=== PATIENT | male | born 1985 | race African-American/Black ===

== ENCOUNTER 2017-07-10 10:27 | Emergency (ER) | payer SELFPAY ==
[2017-07-10] MEDS ORDERED: Acetaminophen 500 MG TAB ONE (11:49)
== END 2017-07-10 12:29 | disposition home or self-care (01) ==
LOC: ERS 10:27
DX: J30.9 Allergic rhinitis, unspecified (principal); F17.210 Nicotine dependence, cigarettes, uncomplicated
CPT/HCPCS: 99406

== ENCOUNTER 2018-02-27 15:22 | Emergency (ER) | payer SELFPAY ==
[2018-02-27] MEDS ORDERED: diphenhydrAMINE 50 MG/ML VIAL ONE (17:50)
[2018-02-27] MEDS ORDERED: Metoclopramide HCl 10 MG/2 ML VIAL ONE (17:50)
[2018-02-27 18:24] LABS: #Basophils 0.1 thou/uL (0.0-0.2); #Eosinphils 0.2 thou/uL (0.0-0.7); #Lymphocytes 2.2 thou/uL (1.20-3.40); #Monocytes 0.5 thou/uL (0.11-0.59); #Neutrophils 3.2 thou/uL (1.40-6.50); %Basophils 1.6 % (0.0-1.0); %Eosinophils 2.5 % (0.0-10.0); %Lymphocytes 35.2 % (21.0-51.0); %Neutrophils 52.7 % (42.0-75.0); Hemoglobin 14.5 g/dL (14.0-18.0); Mean Corpuscular HGB CONC 33.3 g/dL (32.0-36.0); Mean Corpuscular Hemoglobin 29.9 pg (27.0-31.0); Mean Corpuscular Volume 89.9 fL (78.0-98.0); Mean Platelet Volume 8.8 fL (7.4-10.4); Platelet Count 166 thou/uL (130-400); RBC Distribution Width 11.3 % (11.5-14.5); Red Blood Cell (RBC) Count 4.83 mill/uL (4.70-6.10); White Blood Cell (WBC) Count 6.1 thou/uL (4.8-10.8)
[2018-02-27 18:56] LABS: ALT (SGPT) 35 U/L (8-55); AST (SGOT) 26 U/L (5-34); Albumin 4.2 g/dL (3.5-5.0); Alkaline Phosphatase 63 U/L (40-150); Anion Gap 12 mmol/L (10-20); BUN (Urea Nitrogen) 12 mg/dL (8.9-20.6); Bilirubin, Total 0.5 mg/dL (0.2-1.2); CK (CPK) 416 U/L (30-200); Calc. Creatinine Clearance 0 mL/min (70-130); Calcium 9.4 mg/dL (7.8-10.44); Carbon Dioxide 22 mmol/L (22-29); Chloride 108 mmol/L (98-107); Estimated GFR-MDRD 72; Globulin 2.9 g/dL (2.4-3.5); Glucose 80 mg/dL (70-105); Magnesium 2.1 mg/dL (1.6-2.6); Protein, Total 7.1 g/dL (6.0-8.3); Sodium 138 mmol/L (136-145)
[2018-02-27 20:05] LABS: Bilirubin Negative (Negative); Blood, Urine Negative (Negative); Clarity CLEAR (Clear); Glucose, Urine (Dipstick) Negative (Negative); Leukocyte Negative (Negative); Nitrite Negative (Negative); Protein, Urine (Dipstick) Negative (Neg-Trace); Specific Gravity, Urine 1.024 (1.002-1.036); Urobilinogen 0.2 mg/dL (0.2-1.0); pH, Urine 5.5 (5.0-9.0)
[2018-02-27 20:17] LABS: Amphetamine Not Detected (NotDetected); Barbiturates Screen Not Detected (NotDetected); Benzodiazepine Screen Not Detected (NotDetected); Cocaine Metabolite Screen Detected (NotDetected); Medtox Control Line Valid? VALID (VALID); Medtox Reader # READER 4; Methadone Not Detected (NotDetected); Methamphetamine Not Detected (NotDetected); Opiate Screen Not Detected (NotDetected); Oxycodone Screen Not Detected (NotDetected); Phencyclidine (PCP) Not Detected (NotDetected); THC/Cannabinoid Screen Not Detected (NotDetected); Tricyclic Screen Not Detected (NotDetected)
== END 2018-02-27 20:20 | disposition home or self-care (01) ==
LOC: ERS 15:22
DX: T67.5XXA Heat exhaustion, unspecified, initial encounter (principal); E86.0 Dehydration; F17.210 Nicotine dependence, cigarettes, uncomplicated
CPT/HCPCS: 36415; 80053; 80306; 81003; 82550; 83735; 85025; 96365; 96366; 96375; J1200; J2765

== ENCOUNTER 2018-04-24 10:23 | Emergency (ER) | payer OTHER, SELFPAY ==
--- NOTE | 2018-04-24 11:43 | CT ---
CT BRAIN WITHOUT CONTRAST: Date: 04/24/18 HISTORY: Trauma. Headache. FINDINGS: No evidence of acute infarct, hemorrhage, midline shift, or abnormal extra-axial fluid collections ar e seen. The ventricular size is normal and the basilar cisterns are patent. The bony calvarium is int act. The visualized paranasal sinuses are well aerated. IMPRESSION: No CT evidence of acute intracranial process. POS: [facility]
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
== END 2018-04-24 12:16 | disposition home or self-care (01) ==
LOC: ERS 10:23
DX: S16.1XXA Strain of muscle, fascia and tendon at neck level, initial encounter (principal); S00.83XA Contusion of other part of head, initial encounter; F17.210 Nicotine dependence, cigarettes, uncomplicated; Z79.899 Other long term (current) drug therapy; Z79.891 Long term (current) use of opiate analgesic; V43.52XA Car driver injured in collision with other type car in traffic accident, initial encounter
CPT/HCPCS: 70450; 72125

== ENCOUNTER 2018-05-23 06:01 | Emergency (ER) | payer SELFPAY ==
[2018-05-23] MEDS ORDERED: Lidocaine 1% PF 5 ML VIAL ONE (07:29)
[2018-05-23] MEDS ORDERED: cefTRIAXone\\ROCEPHIN 250 MG VIAL ONE (07:29)
[2018-05-23] MEDS ORDERED: Azithromycin 250 MG TAB ONE (07:29)
[2018-05-23 08:20] LABS: Bilirubin Small (Negative); Blood, Urine Negative (Negative); Clarity CLEAR (Clear); Glucose, Urine (Dipstick) Negative (Negative); Leukocyte Negative (Negative); Nitrite Negative (Negative); Protein, Urine (Dipstick) 30 mg/dL (Neg-Trace); Specific Gravity, Urine 1.039 (1.002-1.036); Urobilinogen 0.2 mg/dL (0.2-1.0); pH, Urine 5.5 (5.0-9.0)
[2018-05-23 08:25] LABS: Bacteria/HPF None Seen HPF (None Seen); Hyaline Casts/LPF 0-3 HYALINE CAST LPF (0-3 Hyaline); Pathc Cast-AUWi Flag 0.29 (0-2.49); RBC/HPF 0-3 HPF (0-3); Squamous Epithelial 0-3 HPF (0-3); WBC/HPF 0-3 HPF (0-3)
--- NOTE | 2018-05-23 11:13 | RAD ---
PA AND LATERAL CHEST: HISTORY: Cough. FINDINGS: Heart size is within normal limits. Mediastinal structures are unremarkable. The lungs are clear of infiltrates. No significant bony findings. IMPRESSION: No active intrathoracic disease. POS: [facility]
[2018-05-24 19:43] LABS: Chlamydia by PCR Not Detected (NotDetected); GC by PCR Not Detected (NotDetected)
== END 2018-05-23 09:16 | disposition home or self-care (01) ==
LOC: ERS 06:01
DX: J06.9 Acute upper respiratory infection, unspecified (principal); Z20.2 Contact with and (suspected) exposure to infections with a predominantly sexual mode of transmission; F17.210 Nicotine dependence, cigarettes, uncomplicated
CPT/HCPCS: 71046; 81003; 81015; 87081; 87430; 87491; 87591; 93005; 96372; J0696; J2001

== ENCOUNTER 2018-09-23 19:04 | Emergency (ER) | payer SELFPAY ==
[2018-09-23 19:39] LABS: #Eosinphils 0.1 thou/uL (0.0-0.7); #Lymphocytes 1.5 thou/uL (1.20-3.40); #Monocytes 0.5 thou/uL (0.11-0.59); #Neutrophils 1.8 thou/uL (1.40-6.50); %Eosinophils 1.5 % (0.0-10.0); %Lymphocytes 38.3 % (21.0-51.0); %Neutrophils 47.2 % (42.0-75.0); Hemoglobin 15.1 g/dL (14.0-18.0); Mean Corpuscular HGB CONC 31.9 g/dL (32.0-36.0); Mean Corpuscular Hemoglobin 28.8 pg (27.0-31.0); Mean Corpuscular Volume 90.1 fL (78.0-98.0); Platelet Count 250 thou/uL (130-400); RBC Distribution Width 11.5 % (11.5-14.5); Red Blood Cell (RBC) Count 5.23 mill/uL (4.70-6.10); White Blood Cell (WBC) Count 3.9 thou/uL (4.8-10.8)
[2018-09-23 19:48] LABS: Bilirubin Small (Negative); Blood, Urine Negative (Negative); Clarity CLEAR (Clear); Glucose, Urine (Dipstick) Negative (Negative); Leukocyte Trace (Negative); Nitrite Negative (Negative); Protein, Urine (Dipstick) Trace mg/dL (Neg-Trace); Specific Gravity, Urine 1.029 (1.002-1.036)
[2018-09-23 19:50] LABS: Bacteria/HPF None Seen HPF (None Seen); Hyaline Casts/LPF 0-3 HYALINE CAST LPF (0-3 Hyaline); Pathc Cast-AUWi Flag 0.29 (0-2.49); RBC/HPF 0-3 HPF (0-3); Squamous Epithelial None Seen HPF (0-3); WBC/HPF 0-3 HPF (0-3)
[2018-09-23 20:00] LABS: ALT (SGPT) 26 U/L (8-55); AST (SGOT) 22 U/L (5-34); Acetaminophen Less than 6.0 mcg/mL (10.0-30.0); Albumin 3.7 g/dL (3.5-5.0); Alcohol Less than 10 mg/dL (Less than 10); Alkaline Phosphatase 53 U/L (40-150); Anion Gap 16 mmol/L (10-20); BUN (Urea Nitrogen) 10 mg/dL (8.9-20.6); Bilirubin, Total 0.6 mg/dL (0.2-1.2); Calc. Creatinine Clearance 0 mL/min (70-130); Carbon Dioxide 19 mmol/L (22-29); Chloride 108 mmol/L (98-107); Estimated GFR-MDRD 49; Globulin 2.3 g/dL (2.4-3.5); Glucose 176 mg/dL (70-105); Salicylate Less than 8.0 mg/dL (15.0-30.0); Sodium 139 mmol/L (136-145)
--- NOTE | 2018-09-23 20:07 | RAD ---
LEFT HAND THREE VIEWS: 09/23/18 HISTORY: Pain. COMPARISON: None. FINDINGS: There is no fracture. No cortical irregularity or periosteal reaction. There is mild degenerative meg nges in the fifth proximal interphalangeal joint space. Remaining joint spaces are preserved. IMPRESSION: Unremarkable left hand three views. POS: [facility]
[2018-09-23 20:12] LABS: Amphetamine Not Detected (NotDetected); Barbiturates Screen Not Detected (NotDetected); Benzodiazepine Screen Not Detected (NotDetected); Cocaine Metabolite Screen Detected (NotDetected); Medtox Control Line Valid? VALID (VALID); Medtox Reader # READER 1; Methadone Not Detected (NotDetected); Methamphetamine Not Detected (NotDetected); Opiate Screen Not Detected (NotDetected); Oxycodone Screen Not Detected (NotDetected); Phencyclidine (PCP) Not Detected (NotDetected); THC/Cannabinoid Screen Detected (NotDetected); Tricyclic Screen Not Detected (NotDetected)
--- NOTE | 2018-09-26 23:35 | EKG ---
Test Reason : Blood Pressure : / mmHG Vent. Rate : 129 BPM Atrial Rate : 129 BPM P-R Int : 124 ms QRS Dur : 074 ms QT Int : 304 ms P-R-T Axes : 000 099 -22 degrees QTc Int : 445 ms Sinus tachycardia Rightward axis Abnormal QRS-T angle, consider primary T wave abnormality Abnormal ECG Confirmed by ARIE WALKER, TERRI ([id number]), videotape editor RODRIGUEZ MCDANIEL ([id number]) on 09/26/2018 11:35:17 PM Referred By: Confirmed By:TERRI SARGENT MD
== END 2018-09-23 21:42 | disposition home or self-care (01) ==
LOC: ERS 19:04
DX: F14.129 Cocaine abuse with intoxication, unspecified (principal); F12.10 Cannabis abuse, uncomplicated; F17.210 Nicotine dependence, cigarettes, uncomplicated
CPT/HCPCS: 36415; 80053; 80306; 80307; 81003; 81015; 84443; 85025; 93005; 96360; 96361

== ENCOUNTER 2018-11-21 01:08 | Emergency (ER) | payer SELFPAY | END 2018-11-21 01:32 | LOC: ERS 01:08 | DX: F16.10 Hallucinogen abuse, uncomplicated (principal); R45.1 Restlessness and agitation; F17.210 Nicotine dependence, cigarettes, uncomplicated | CPT/HCPCS: 99283 ==

== ENCOUNTER 2019-02-08 11:53 | Emergency (ER) | payer SELFPAY | END 2019-02-08 13:30 | disposition home or self-care (01) | LOC: ERS 11:53 | DX: H11.31 Conjunctival hemorrhage, right eye (principal); J06.9 Acute upper respiratory infection, unspecified; F17.210 Nicotine dependence, cigarettes, uncomplicated | CPT/HCPCS: 99283 ==

== ENCOUNTER 2019-02-22 17:41 | Emergency (ER) | payer SELFPAY ==
[2019-02-22 19:41] LABS: Bilirubin Negative (Negative); Blood, Urine Negative (Negative); Clarity Clear (Clear); Glucose, Urine (Dipstick) Normal (Negative); Leukocyte Negative Leu/uL (Negative); Nitrite Negative (Negative); Protein, Urine (Dipstick) 10 mg/dL (Neg-Trace); Urobilinogen 3 mg/dL (Less than 2)
[2019-02-24 23:02] LABS: Chlam.trachomatis by PCR,Urine Not Detected (NotDetected)
== END 2019-02-22 20:12 | disposition home or self-care (01) ==
LOC: ERS 17:41
DX: R30.0 Dysuria (principal); F17.210 Nicotine dependence, cigarettes, uncomplicated
CPT/HCPCS: 81003; 87491; 87591; 99281

== ENCOUNTER 2019-02-28 20:28 | Observation (INO) | payer SELFPAY ==
[2019-02-28 20:54] LABS: #Basophils 0.1 thou/uL (0.0-0.2); #Eosinphils 0.3 thou/uL (0.0-0.7); #Lymphocytes 2.5 thou/uL (1.20-3.40); #Monocytes 0.8 thou/uL (0.11-0.59); %Basophils 0.9 % (0.0-1.0); %Eosinophils 3.4 % (0.0-10.0); %Lymphocytes 25.4 % (21.0-51.0); %Monocytes 8.1 % (0.0-10.0); %Neutrophils 62.2 % (42.0-75.0); Hemoglobin 15.7 g/dL (14.0-18.0); Mean Corpuscular HGB CONC 33.5 g/dL (32.0-36.0); Mean Corpuscular Hemoglobin 29.7 pg (27.0-31.0); Mean Corpuscular Volume 88.9 fL (78.0-98.0); Mean Platelet Volume 9.5 fL (7.4-10.4); Platelet Count 293 thou/uL (130-400); RBC Distribution Width 11.4 % (11.5-14.5); Red Blood Cell (RBC) Count 5.28 mill/uL (4.70-6.10); White Blood Cell (WBC) Count 9.7 thou/uL (4.8-10.8)
[2019-02-28 21:07] LABS: ALT (SGPT) 23 U/L (8-55); AST (SGOT) 30 U/L (5-34); Albumin 5.2 g/dL (3.5-5.0); Alkaline Phosphatase 82 U/L (40-150); Anion Gap 25 mmol/L (10-20); BUN (Urea Nitrogen) 15 mg/dL (8.9-20.6); Bilirubin, Total 0.8 mg/dL (0.2-1.2); CK (CPK) 1237 U/L (30-200); Calc. Creatinine Clearance 0 mL/min (70-130); Carbon Dioxide 16 mmol/L (22-29); Chloride 101 mmol/L (98-107); Estimated GFR-MDRD 31; Globulin 3.7 g/dL (2.4-3.5); Glucose 179 mg/dL (70-105); Protein, Total 8.9 g/dL (6.0-8.3); Sodium 138 mmol/L (136-145)
[2019-02-28] MEDS ORDERED: Acetaminophen 325 MG TAB PO PRN (22:41)
[2019-02-28] MEDS ORDERED: Ondansetron ODT 4 MG TAB PO PRN (22:41)
[2019-02-28] MEDS ORDERED: Senokot S 8.6-50 MG TAB PO PRN (22:41)
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
[2019-02-28 23:01] LABS: Hemoglobin A1c 4.8 % (4.0-6.0)
[2019-02-28 23:51] LABS: Lactic Acid 0.9 mmol/L (0.5-2.2)
[2019-03-01] MEDS: Lactated Ringer's 1,000 ML IV SCH ×6 (00:04→12:57)
[2019-03-01 00:06] VITALS: BMI 39.0
[2019-03-01 00:40] LABS: Bacteria/HPF None Seen HPF (None Seen); Bilirubin Negative (Negative); Blood, Urine Negative (Negative); Clarity Turbid (Clear); Glucose, Urine (Dipstick) Normal (Negative); Leukocyte Negative Leu/uL (Negative); Nitrite Negative (Negative); Protein, Urine (Dipstick) 50 mg/dL (Neg-Trace); Squamous Epithelial 0-3 HPF (0-3); WBC/HPF 0-3 HPF (0-3)
[2019-03-01 00:42] LABS: Medtox Reader # READER 1
[2019-03-01 00:45] LABS: Amphetamine Not Detected (NotDetected); Barbiturates Screen Not Detected (NotDetected); Benzodiazepine Screen Not Detected (NotDetected); Cocaine Metabolite Screen Detected (NotDetected); Medtox Control Line Valid? VALID (VALID); Methadone Not Detected (NotDetected); Methamphetamine Not Detected (NotDetected); Opiate Screen Not Detected (NotDetected); Oxycodone Screen Not Detected (NotDetected); Phencyclidine (PCP) Not Detected (NotDetected); THC/Cannabinoid Screen Not Detected (NotDetected); Tricyclic Screen Not Detected (NotDetected)
[2019-03-01 00:50] LABS: Creatinine, Urine Greater than 430.00 mg/dL (63-166); Sodium, Urine 86 mmol/L (Not Available)
[2019-03-01 01:11] LABS: Lactic Acid 0.8 mmol/L (0.5-2.2)
[2019-03-01 03:34] VITALS: TEMP 98.2
[2019-03-01 05:33] LABS: Lactic Acid 1.4 mmol/L (0.5-2.2)
[2019-03-01 05:44] LABS: Anion Gap 13 mmol/L (10-20); BUN (Urea Nitrogen) 15 mg/dL (8.9-20.6); CK (CPK) 968 U/L (30-200); Calc. Creatinine Clearance 98 mL/min (70-130); Calcium 9.2 mg/dL (7.8-10.44); Carbon Dioxide 22 mmol/L (22-29); Chloride 108 mmol/L (98-107); Estimated GFR-MDRD 59; Glucose 107 mg/dL (70-105); Potassium 3.8 mmol/L (3.5-5.1); Sodium 139 mmol/L (136-145)
--- NOTE | 2019-03-01 08:20 | PDOC.FM ---
- Subjective Subjective: Pt reports feeling well this AM. No chest pain, SOB. Denies nausea/vomiting. - Objective Vital Signs & Weight: Vital Signs (12 hours) Temp Pulse Resp BP Pulse Ox 03/01/19 07:24 98.2 F 69 20 129/70 97 03/01/19 03:33 98.2 F 73 16 134/65 97 02/28/19 23:58 98.4 F 83 18 135/89 97 Weight Weight 109.679 kg I&O: 02/28/19 03/01/19 03/02/19 06:59 06:59 06:59 Intake Total 2159 Output Total 1000 Balance 1159 Result Diagrams: 02/28/19 20:40 03/01/19 04:51 Phys Exam - Physical Examination Constitutional: NAD HEENT: PERRLA, moist MMs Respiratory: no wheezing, clear to auscultation bilateral Cardiovascular: RRR, no significant murmur Gastrointestinal: soft, non-tender Musculoskeletal: no edema, pulses present Neurological: non-focal, moves all 4 limbs Psychiatric: normal affect Skin: no rash, normal turgor, cap refill <2 seconds Dx/Plan (1) Cocaine abuse Code(s): F14.10 - COCAINE ABUSE, UNCOMPLICATED Status: Acute (2) Ajupi-qm-aheehdu kidney injury Code(s): N17.9 - ACUTE KIDNEY FAILURE, UNSPECIFIED; N18.9 - CHRONIC KIDNEY DISEASE, UNSPECIFIED Status: Acute (3) Rhabdomyolysis Code(s): M62.82 - RHABDOMYOLYSIS Status: Acute (4) Dehydration Code(s): E86.0 - DEHYDRATION Status: Acute (5) Hyperglycemia Code(s): R73.9 - HYPERGLYCEMIA, UNSPECIFIED Status: Acute - Plan Plan: #Rhabdomyolysis, improving -CK 1237 -> 968 - creatinine 2.88 up from baseline 1.26 september 2018 - lactic acid 3.9, downtrended to 1.4 - LR @ 300ml/hr #Moderate Dehydration -FeNa 0.4%, pre-renal -rehydration as above, encourage PO intake fluids #CESAR on CKD3a -baseline creatinine from previous admission 1.9->2.88 -BUN/creatinine ratio 5.2 -FeNa 0.4%, prerenal, likely 2/2 dehydration/cocaine use -bilateral renal u/s today #Cocaine abuse -UDS + -reports last use 2 days ago -Encourage cessation #Hyperglycemia, resolved -A1C 4.8 Diet: CC DVT proph: lovenox renally dosed GI proph: pepcid Code status: full code Dispo: likely home today after renal sono Addendum - Attending - Attending Attestation Date/Time: 03/01/19 1212 I personally evaluated the patient and discussed the management with Dr. Aguilar. I agree with the History, Examination, Assessment and Plan documented above with any addition or exceptions noted below. The patient's CK is improved. CESAR improved with IV fluids. Pt counseled on cocaine cessation. Continuing to push oral fluids. Renal ultrasound normal. Will d/c home.
[2019-03-01] MEDS ORDERED: Enoxaparin Sodium 30 MG/0.3 ML SYRINGE SC SCH (09:00)
[2019-03-01] MEDS ORDERED: Famotidine 20 MG TAB PO SCH (09:00)
--- NOTE | 2019-03-01 09:18 | ULT ---
US Renal Bilateral STANDARD History: Elevated creatinine Comparison: None. Findings: Real-time grayscale and color evaluation of the kidneys and urinary bladder was performed. Right kidney measures 10.4 x 5.7 x 5.6 cm and the left kidney measures 10.8 x 6.2 x 6.2 cm. Post void urinary bladder volume is less than 1 mL. No renal mass, hydronephrosis, or abnormal calcifications. Impression: Normal examination of the kidneys.
[2019-03-01 12:08] VITALS: BP 135/80
--- NOTE | 2019-03-02 10:35 | DIS ---
DATE OF ADMISSION: 02/28/2019 DATE OF DISCHARGE: 03/01/2019 RESIDENT: Lissa Aguilar MD ADMITTING ATTENDING: Adrián Cramer MD DISCHARGE ATTENDING: Genia Syed MD CONSULTS: None. PROCEDURE PERFORMED: Renal ultrasound, 03/01/2019. Impression, normal examination of kidneys. PRIMARY DIAGNOSES: 1. Rhabdomyolysis. 2. Moderate dehydration. SECONDARY DIAGNOSES: 1. Acute kidney injury on chronic kidney disease 3A. 2. Cocaine abuse. 3. Hyperglycemia, resolved. DISCHARGE MEDICATIONS: None. DISCONTINUED MEDICATIONS: None. HISTORY OF PRESENT ILLNESS/HOSPITAL COURSE: The patient is a 33-year-old male presenting to the ED for weakness. He reports that yesterday he was helping a friend move furniture from one house to another by himself in the car that did not have air conditioning. He was sweating profusely in heat. He also reported he had difficulty urinating the day prior and when he did void, his urine was dark in color. He reported nausea and vomiting and generalized weakness. He also reported some right-sided muscle and leg spasms. He denied chest pain or shortness of breath, headache, dysuria, diarrhea, constipation, numbness, or tingling. On presentation to the ED, he was tachycardic. He received 2 L of IV fluids which causes tachycardia to resolve. His CK was found to be 1237. His creatinine was up to 2.88 from his baseline of 1.9. He was started on aggressive IV fluid hydration. His CK improved down to 900. Acute kidney injury on chronic kidney disease. The patient had a previous creatinine of 1.9, which was increased to 2.88 on admission. With aggressive IV fluids, improved to 1.64 with estimated GFR of 59. The patient was encouraged to continue staying well-hydrated at home and to follow up with his PCP within 1 week. DISPOSITION: Stable. DISCHARGE INSTRUCTIONS: 1. Location: Home. 2. Diet: Regular diet. Encourage aggressive p.o. hydration. 3. Activity: As tolerated. 4. Followup: Follow up with PCP within 1 week. The patient was given information to follow up at [facility] and physicians to establish care with Dr. Lissa Aguilar. Job ID: [id number] [facility]
--- NOTE | 2019-03-06 12:46 | EKG ---
Test Reason : Blood Pressure : / mmHG Vent. Rate : 119 BPM Atrial Rate : 119 BPM P-R Int : 134 ms QRS Dur : 082 ms QT Int : 320 ms P-R-T Axes : 000 096 -12 degrees QTc Int : 450 ms Sinus tachycardia Rightward axis Minimal voltage criteria for LVH, may be normal variant Nonspecific T wave abnormality Abnormal ECG Confirmed by HENRIK WALKER, CHUN ([id number]), photograph editor RODRIGUEZ MCDANIEL ([id number]) on 03/06/2019 12:46:04 PM Referred By: Confirmed By:CHUN CHESTER MD
== END 2019-03-01 13:29 | disposition home or self-care (01) ==
LOC: ERS 20:28 → 2SW 23:36
PROVIDERS: ADMIT Family Medicine; ATTEND Family Medicine
DX: M62.82 Rhabdomyolysis (principal); E86.0 Dehydration; I12.9 Hypertensive chronic kidney disease with stage 1 through stage 4 chronic kidney disease, or unspecified chronic kidney disease; E11.22 Type 2 diabetes mellitus with diabetic chronic kidney disease; N18.3 Chronic kidney disease, stage 3 (moderate); N17.9 Acute kidney failure, unspecified; E11.65 Type 2 diabetes mellitus with hyperglycemia; F14.10 Cocaine abuse, uncomplicated; F17.210 Nicotine dependence, cigarettes, uncomplicated; F12.10 Cannabis abuse, uncomplicated; Z88.6 Allergy status to analgesic agent
CPT/HCPCS: 36415; 76770; 80048; 80053; 80306; 81001; 82550; 82570; 83036; 83605; 83935; 84300; 85025; 93005; 94760; 96360; 96361; G0378; J1650; J7120

== ENCOUNTER 2019-07-24 22:09 | Emergency (ER) | payer SELFPAY ==
--- NOTE | 2019-07-24 22:39 | RAD ---
XR Finger(s) Rt Min 2 View HISTORY: Thumb injury COMPARISON: None. FINDINGS: There are no signs of fracture or dislocation. IMPRESSION: No acute injury.
== END 2019-07-24 23:24 | disposition home or self-care (01) ==
LOC: ERS 22:09
DX: S60.111A Contusion of right thumb with damage to nail, initial encounter (principal); F17.210 Nicotine dependence, cigarettes, uncomplicated; W23.0XXA Caught, crushed, jammed, or pinched between moving objects, initial encounter
CPT/HCPCS: 11740

== ENCOUNTER 2020-02-24 17:08 | Emergency (ER) | payer SELFPAY ==
[2020-02-24] MEDS ORDERED: Naloxone HCl 0.4 mg/ml Vial ONE (17:28)
== END 2020-02-24 19:19 | disposition home or self-care (01) ==
LOC: ERS 17:08
DX: R41.82 Altered mental status, unspecified (principal); F41.9 Anxiety disorder, unspecified
CPT/HCPCS: 96361; 96374; J2310

== ENCOUNTER 2020-04-30 20:53 | Emergency (ER) | payer OTHER, SELFPAY ==
[2020-04-30] MEDS ORDERED: Ketorolac Tromethamine 30 MG/ML VIAL ONE (21:07)
[2020-05-01 11:36] LABS: SARS-CoV-2 MS2 Positive; SARS-CoV-2 N Gene Negative; SARS-CoV-2 S Gene Negative; SARS-CoV-2 by NAA Not Detected (NotDetected); SARS-CoV-2 orf1ab Negative
== END 2020-04-30 21:30 | disposition home or self-care (01) ==
LOC: ERS 20:53
DX: M67.879 Other specified disorders of synovium and tendon, unspecified ankle and foot (principal); R19.7 Diarrhea, unspecified; F17.210 Nicotine dependence, cigarettes, uncomplicated; Z20.828 Contact with and (suspected) exposure to other viral communicable diseases
CPT/HCPCS: 87635; 96372; 99284; J1885; U0003

== ENCOUNTER 2020-05-18 20:26 | Emergency (ER) | payer SELFPAY ==
[2020-05-18] MEDS ORDERED: Ondansetron PF 4 MG/2 ML Vial ONE (20:49)
[2020-05-18 21:13] LABS: #Eosinphils 0.1 thou/uL (0.0-0.7); #Lymphocytes 1.3 thou/uL (1.20-3.40); #Monocytes 0.3 thou/uL (0.11-0.59); #Neutrophils 2.8 thou/uL (1.40-6.50); %Basophils 0.7 % (0.0-1.0); %Eosinophils 1.7 % (0.0-10.0); %Lymphocytes 27.9 % (21.0-51.0); %Monocytes 7.4 % (0.0-10.0); %Neutrophils 62.3 % (42.0-75.0); Hemoglobin 12.8 g/dL (14.0-18.0); Mean Corpuscular HGB CONC 33.1 g/dL (32.0-36.0); Mean Corpuscular Hemoglobin 29.6 pg (27.0-31.0); Mean Corpuscular Volume 89.5 fL (78.0-98.0); Mean Platelet Volume 9.3 fL (7.4-10.4); Platelet Count 226 thou/uL (130-400); RBC Distribution Width 11.8 % (11.5-14.5); Red Blood Cell (RBC) Count 4.33 mill/uL (4.70-6.10); White Blood Cell (WBC) Count 4.5 thou/uL (4.8-10.8)
[2020-05-18 21:35] LABS: ALT (SGPT) 23 U/L (8-55); AST (SGOT) 23 U/L (5-34); Albumin 4.5 g/dL (3.5-5.0); Alkaline Phosphatase 69 U/L (40-110); Anion Gap 12 mmol/L (10-20); BUN (Urea Nitrogen) 15 mg/dL (8.9-20.6); Bilirubin, Total 0.5 mg/dL (0.2-1.2); CK (CPK) 454 U/L (30-200); Calc. Creatinine Clearance 0 mL/min (70-130); Calcium 9.6 mg/dL (7.8-10.44); Carbon Dioxide 24 mmol/L (22-29); Chloride 105 mmol/L (98-107); Estimated GFR-MDRD 64; Glucose 98 mg/dL (70-105); Lipase 12 U/L (8-78); Potassium 4.1 mmol/L (3.5-5.1); Protein, Total 7.5 g/dL (6.0-8.3); Sodium 137 mmol/L (136-145)
[2020-05-18 22:46] LABS: Bacteria/HPF None Seen HPF (None Seen); Bilirubin Negative (Negative); Blood, Urine Negative (Negative); Clarity Clear (Clear); Glucose, Urine (Dipstick) Normal (Negative); Ketone, Urine Negative (Negative); Leukocyte Negative Leu/uL (Negative); Mucous/LPF 1+ LPF (<2+); Nitrite Negative (Negative); Protein, Urine (Dipstick) 50 mg/dL (Neg-Trace); RBC/HPF 0-3 HPF (0-3); Specific Gravity, Urine 1.032 (1.002-1.036); Squamous Epithelial None Seen HPF (0-3); Urobilinogen Normal mg/dL (Less than 2); WBC/HPF 0-3 HPF (0-3); pH, Urine 5.5 (5.0-9.0)
== END 2020-05-18 23:32 | disposition home or self-care (01) ==
LOC: ERS 20:26
DX: E86.0 Dehydration (principal); R11.2 Nausea with vomiting, unspecified; F17.210 Nicotine dependence, cigarettes, uncomplicated
CPT/HCPCS: 36415; 80053; 81003; 81015; 82550; 83690; 85025; 96374; J2405

== ENCOUNTER 2020-10-22 07:08 | Emergency (ER) | payer SELFPAY ==
[2020-10-22] MEDS ORDERED: Lorazepam 2 MG/ML VIAL ONE (07:17)
[2020-10-22 07:33] LABS: #Basophils 0.1 thou/uL (0.0-0.2); #Eosinphils 0.2 thou/uL (0.0-0.7); #Monocytes 0.4 thou/uL (0.11-0.59); #Neutrophils 2.4 thou/uL (1.40-6.50); %Basophils 1.3 % (0.0-1.0); %Eosinophils 4.1 % (0.0-10.0); %Lymphocytes 39.2 % (21.0-51.0); %Monocytes 7.9 % (0.0-10.0); %Neutrophils 47.6 % (42.0-75.0); Hemoglobin 12.8 g/dL (14.0-18.0); Mean Corpuscular HGB CONC 33.4 g/dL (32.0-36.0); Mean Corpuscular Hemoglobin 30.1 pg (27.0-31.0); Mean Corpuscular Volume 90.1 fL (78.0-98.0); Mean Platelet Volume 9.3 fL (7.4-10.4); Platelet Count 200 thou/uL (130-400); Red Blood Cell (RBC) Count 4.25 mill/uL (4.70-6.10); White Blood Cell (WBC) Count 5.1 thou/uL (4.8-10.8)
[2020-10-22 07:53] LABS: Acetaminophen Less than 6.0 mcg/mL (10.0-30.0); Alcohol Less than 10 mg/dL (Less than 10); CK (CPK) 289 U/L (30-200); Salicylate Less than 8.0 mg/dL (15.0-30.0)
[2020-10-22 07:55] LABS: ALT (SGPT) 28 U/L (8-55); AST (SGOT) 24 U/L (5-34); Albumin 4.3 g/dL (3.5-5.0); Alkaline Phosphatase 81 U/L (40-110); Anion Gap 24 mmol/L (10-20); BUN (Urea Nitrogen) 15 mg/dL (8.9-20.6); Bilirubin, Total 0.2 mg/dL (0.2-1.2); Calc. Creatinine Clearance 0 mL/min (70-130); Calcium 9.2 mg/dL (7.8-10.44); Carbon Dioxide 14 mmol/L (22-29); Chloride 104 mmol/L (98-107); Globulin 3.7 g/dL (2.4-3.5); Glucose 211 mg/dL (70-105); Potassium 4.2 mmol/L (3.5-5.1); Sodium 138 mmol/L (136-145)
[2020-10-22 09:43] LABS: Bilirubin Negative (Negative); Blood, Urine Negative (Negative); Clarity Clear (Clear); Glucose, Urine (Dipstick) Normal (Negative); Ketone, Urine Negative (Negative); Leukocyte Negative Leu/uL (Negative); Nitrite Negative (Negative); Protein, Urine (Dipstick) 100 mg/dL (Neg-Trace); RBC/HPF 0-3 HPF (0-3); Specific Gravity, Urine 1.024 (1.002-1.036); Squamous Epithelial None Seen HPF (0-3); Urobilinogen Normal mg/dL (Less than 2)
[2020-10-22 09:44] LABS: Actual Bicarbonate (HCO3v) 23 mEq/L (22-28); Analyzer IN Cardio ER; Base Excess -0.9 mEq/L (-2.0 to +3.0); Calcium, Ionized (venous) 1.12 mmol/L (1.16-1.32); Chloride (VBG) 108 mmol/L (98-106); Hemoglobin (Hb) 13.3 g/dL (13.2-17.3); Potassium (VBG) 4.45 mmol/L (3.70-5.30); Sodium 136.9 mmol/L (133-146); pH (venous) 7.41 (7.32-7.43)
[2020-10-22 09:45] LABS: Bacteria/HPF Rare-Few HPF (None Seen)
[2020-10-22 09:46] LABS: Sperm/HPF 3+ HPF (None Seen)
[2020-10-22 09:51] LABS: Medtox Reader # READER 4; Phencyclidine (PCP) Not Detected (NotDetected); THC/Cannabinoid Screen Not Detected (NotDetected)
[2020-10-22 09:52] LABS: Amphetamine Not Detected (NotDetected); Barbiturates Screen Not Detected (NotDetected); Benzodiazepine Screen Not Detected (NotDetected); Cocaine Metabolite Screen Detected (NotDetected); Medtox Control Line Valid? VALID (VALID); Methadone Not Detected (NotDetected); Methamphetamine Not Detected (NotDetected); Opiate Screen Not Detected (NotDetected); Oxycodone Screen Not Detected (NotDetected); Tricyclic Screen Not Detected (NotDetected)
== END 2020-10-22 12:09 | disposition home or self-care (01) ==
LOC: ERS 07:08
DX: T50.901A Poisoning by unspecified drugs, medicaments and biological substances, accidental (unintentional), initial encounter (principal); F17.210 Nicotine dependence, cigarettes, uncomplicated
CPT/HCPCS: 80053; 80306; 80307; 81003; 81015; 82550; 82805; 84443; 85025; 93005; 94760; 96374; J2060

== ENCOUNTER 2021-01-25 02:05 | Emergency (ER) | payer SELFPAY ==
[2021-01-25] MEDS ORDERED: Fluorescein Opthalmic Strip ONE (02:14)
[2021-01-25] MEDS ORDERED: Proparacaine 0.5% Opth 15 ML BOT ONE (02:14)
== END 2021-01-25 02:33 | disposition home or self-care (01) ==
LOC: ERS 02:05
DX: H57.9 Unspecified disorder of eye and adnexa (principal); F17.210 Nicotine dependence, cigarettes, uncomplicated
CPT/HCPCS: 99283

== ENCOUNTER 2021-03-12 09:28 | Emergency (ER) | payer SELFPAY | END 2021-03-12 10:56 | disposition home or self-care (01) | LOC: ERS 09:28 | DX: S01.81XD Laceration without foreign body of other part of head, subsequent encounter (principal); F17.210 Nicotine dependence, cigarettes, uncomplicated | CPT/HCPCS: 99281 ==

== ENCOUNTER 2021-05-19 23:03 | Emergency (ER) | payer SELFPAY ==
[2021-05-19 23:59] LABS: #Eosinphils 0.1 thou/uL (0.0-0.7); #Lymphocytes 1.9 thou/uL (1.20-3.40); #Monocytes 0.5 thou/uL (0.11-0.59); #Neutrophils 3.8 thou/uL (1.40-6.50); %Basophils 0.7 % (0.0-1.0); %Eosinophils 1.5 % (0.0-10.0); %Lymphocytes 29.7 % (21.0-51.0); %Monocytes 8.1 % (0.0-10.0); Hemoglobin 13.3 g/dL (14.0-18.0); Mean Corpuscular HGB CONC 33.1 g/dL (32.0-36.0); Mean Corpuscular Hemoglobin 30.1 pg (27.0-31.0); Mean Corpuscular Volume 91.1 fL (78.0-98.0); Mean Platelet Volume 8.8 fL (7.4-10.4); Platelet Count 197 thou/uL (130-400); RBC Distribution Width 11.8 % (11.5-14.5); Red Blood Cell (RBC) Count 4.43 mill/uL (4.70-6.10); White Blood Cell (WBC) Count 6.3 thou/uL (4.8-10.8)
[2021-05-20 00:37] LABS: Acetaminophen Less than 6.0 mcg/mL (10.0-30.0); Alcohol Less than 10 mg/dL (Less than 10); Salicylate Less than 8.0 mg/dL (15.0-30.0)
[2021-05-20 01:25] LABS: ALT (SGPT) 19 U/L (8-55); AST (SGOT) 19 U/L (5-34); Albumin 3.8 g/dL (3.5-5.0); Alkaline Phosphatase 58 U/L (40-110); Anion Gap 13 mmol/L (10-20); BUN (Urea Nitrogen) 6 mg/dL (8.9-20.6); Bilirubin, Total 0.7 mg/dL (0.2-1.2); Calc. Creatinine Clearance 0 mL/min (70-130); Calcium 9.4 mg/dL (7.8-10.44); Carbon Dioxide 25 mmol/L (22-29); Chloride 106 mmol/L (98-107); Globulin 2.6 g/dL (2.4-3.5); Glucose 87 mg/dL (70-105); Potassium 3.8 mmol/L (3.5-5.1); Protein, Total 6.4 g/dL (6.0-8.3); Sodium 140 mmol/L (136-145)
[2021-05-20 02:13] LABS: Bilirubin Negative (Negative); Blood, Urine Negative (Negative); Clarity Clear (Clear); Glucose, Urine (Dipstick) Normal (Negative); Ketone, Urine Negative (Negative); Leukocyte Negative Leu/uL (Negative); Nitrite Negative (Negative); Protein, Urine (Dipstick) Negative (Neg-Trace); Urobilinogen Normal mg/dL (Less than 2); pH, Urine 5.5 (5.0-9.0)
[2021-05-20] MEDS ORDERED: Lorazepam 2 MG/ML VIAL ONE (02:43)
[2021-05-20] MEDS ORDERED: Haloperidol Lactate 5 MG/ML VIAL ONE (02:43)
[2021-05-20] MEDS ORDERED: diphenhydrAMINE 50 MG/ML VIAL ONE (02:43)
[2021-05-20 03:46] LABS: Amphetamine Detected (NotDetected); Barbiturates Screen Not Detected (NotDetected); Benzodiazepine Screen Not Detected (NotDetected); Cocaine Metabolite Screen Not Detected (NotDetected); Methadone Not Detected (NotDetected); Methamphetamine Detected (NotDetected); Opiate Screen Not Detected (NotDetected); Oxycodone Screen Not Detected (NotDetected); Phencyclidine (PCP) Detected (NotDetected); THC/Cannabinoid Screen Not Detected (NotDetected); Tricyclic Screen Not Detected (NotDetected)
[2021-05-20] MEDS ORDERED: hydrOXYzine 25 MG TAB ONE (08:25)
== END 2021-05-21 09:10 | disposition home or self-care (01) ==
LOC: ERS 23:03
DX: F32.9 Major depressive disorder, single episode, unspecified (principal); F43.10 Post-traumatic stress disorder, unspecified; F17.210 Nicotine dependence, cigarettes, uncomplicated; Z79.899 Other long term (current) drug therapy
CPT/HCPCS: 36415; 80053; 80306; 80307; 81003; 84443; 85025; 93005; 96372; J1200; J1630; J2060

== ENCOUNTER 2021-12-27 19:19 | Emergency (ER) | payer SELFPAY | END 2021-12-27 21:23 | disposition left against medical advice (07) | LOC: ERS 19:19 | DX: Z53.21 Procedure and treatment not carried out due to patient leaving prior to being seen by health care provider (principal) ==